=== PATIENT | female | born 1990 | race African-American/Black ===

== ENCOUNTER 2021-04-06 03:37 | Emergency (ER) | payer OTHER, SELFPAY ==
[2021-04-06 04:41] LABS: Urine Blood 2+ (Negative); Urine Glucose Negative (Negative); Urine Protein Negative (Negative); Urine Specific Gravity >=1.030 (1.005-1.030); Urine pH 6.5 (5.0-7.0)
[2021-04-06] MEDS ORDERED: LEVALBUTEROL 1.25 MG/3 ML NEB ONE (04:51)
[2021-04-06] MEDS ORDERED: METHYLPREDNISOLONE 125 MG INJ ONE (04:51)
[2021-04-06 04:57] LABS: Urine Specific Gravity/Preg >1.030 (1.005-1.030)
--- NOTE | 2021-04-06 06:04 | ER ---
Nurse's Notes [facility] Name: David Yusuf Age: 30 yrs Sex: Female : 1990 Arrival Date: 04/06/2021 Time: 03:43 Bed 25 Private MD: Diagnosis: Unspecified asthma with (acute) exacerbation Presentation: 04/06 03:49 Chief complaint: Patient states: SOB X 2 DAYS, CALLED EMS YESTERDAY WAS GIVEN 2 sj1 BREATHING TX'S AT HER HOUSE AT 2131. WOKE UP 0230 WITH CHEST TIGHTNESS. PROD COUGH WITH YELLOW/GREEN PHLEGM, BODY ACHES, DENIES FEVERS. HX OF ASTHMA. C/O 12/30 TORSO PAIN. Coronavirus screen: Vaccine status: Patient reports being unvaccinated. Ebola Screen: Patient negative for fever greater than or equal to 101.5 degrees Fahrenheit, and additional compatible Ebola Virus Disease symptoms Patient denies exposure to infectious person. Patient denies travel to an Ebola-affected area in the 21 days before illness onset. No symptoms or risks identified at this time. Initial Sepsis Screen: Does the patient meet any 2 criteria? No. Patient's initial sepsis screen is negative. Does the patient have a suspected source of infection? No. Patient's initial sepsis screen is negative. Risk Assessment: Do you want to hurt yourself or someone else? Patient reports no desire to harm self or others. Onset of symptoms was April 04, 2021. 03:49 Method Of Arrival: Ambulatory sj1 03:49 Acuity: FLORIDALMA 3 sj1 Triage Assessment: 03:55 General: Appears in no apparent distress. Behavior is calm, cooperative, appropriate sj1 for age. Pain: Complains of pain in chest. EENT: No deficits noted. Neuro: No deficits noted. Cardiovascular: No deficits noted. Cardiovascular: Chest pain quality is TIGHTNESS. Respiratory: Reports shortness of breath at rest on exertion cough that is productive. Respiratory: Onset: The symptoms/episode began/occurred 2 DAYS AGO, the patient has mild shortness of breath. GI: No deficits noted. 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 - Social history:: Smoking status: Patient denies any tobacco usage or history of. Patient uses alcohol, but reports only rare drinking. Patient/guardian denies using street drugs. - Family history:: not pertinent. - Hospitalizations: : No recent hospitalization is reported. Screenin:03 Nutritional screening: No deficits noted. Fall Risk None identified. sj1 04:05 Abuse screen: Denies threats or abuse. Denies injuries from another. Nutritional dc2 screening: No deficits noted. Tuberculosis screening: No symptoms or risk factors identified. Never had TB. Possible symptoms: None. Assessment: 04:03 General: Appears in no apparent distress. Neuro: No deficits noted. Cardiovascular: [facility] Rhythm is Chest pain is described as vague, quality is tightness is located in "the pain hurt all over". Respiratory: Airway is patent Trachea midline Respiratory effort is even, unlabored, Ventilator assessment: GI: No deficits noted. : No deficits noted. EENT: No deficits noted. Derm: No deficits noted. Musculoskeletal: No deficits noted. Vital Signs: 03:49 BP 120 / 92 LA Sitting (auto/reg); Pulse 89; Resp 18 S; Temp 99(O); Pulse Ox 96% on sj1 R/A; Weight 90.72 kg (R); Height 5 ft. 7 in. (170.18 cm); Pain 7/10; 04:00 BP 128 / 91; Pulse 86; Resp 19; Pulse Ox 100% on R/A; Pain 4/10; dc2 05:00 BP 136 / 90; Pulse 82; Resp 18; Pulse Ox 100% on R/A; Pain 5/10; dc2 06:00 BP 115 / 83; Pulse 71; Resp 18; Temp 98.0; Pulse Ox 100% on R/A; Pain 3/10; dc2 03:49 Body Mass Index 31.32 (90.72 kg, 170.18 cm) [facility] ED Course: 03:43 Patient arrived in ED. 03:55 Triage completed. [facility] 03:55 Arm band placed on right wrist. [facility] 04:02 Mynor Pruitt MD is Attending Physician. rn 04:03 Patient has correct armband on for positive identification. Bed in low position. Call 1 light in reach. Side rails up X 1. 04:04 Connie Flores, RN is Primary Nurse. dc2 04:24 SARS-COV-2 RT PCR Sent. dc2 04:30 Initial Neb Treatment Given as ordered. dc2 04:35 X-ray(s) taken. dc2 04:40 Strep Sent. dc2 04:40 Flu Sent. dc2 04:40 XRAY Chest (1 view) Sent. dc2 04:44 XRAY Chest (1 view) In Process Unspecified. EDMS 05:00 Awaiting lab results. dc2 05:00 No apparent distress. Appears to be sleeping. dc2 05:05 Urine --Ancillary (enter results) Sent. dc2 06:11 No provider procedures requiring assistance completed. dc2 06:13 IV discontinued, intact, bleeding controlled, No redness/swelling at site. Pressure dc2 dressing applied. Administered Medications: 04:35 Drug: Xopenex (levalbuterol) (3) 1.25 mg Route: Inhalation; dc2 05:05 Drug: SOLU-Medrol (methylPrednisoLONE) 125 mg Route: IVP; Site: left antecubital; dc2 Outcome: 06:04 Discharge ordered by . rn 06:13 Discharged to home via ambulance, with family. dc2 06:13 Condition: stable 06:13 Discharge instructions given to patient, Instructed on discharge instructions, Demonstrated understanding of instructions, Prescriptions given X 4. 06:14 Patient left the ED. dc2 Signatures: Dispatcher [employer] EDMN Mynor Pruitt MD MD rn Marsh, Wendy Connie Flores RN RN dc2 Rosalia Castaneda RN RN sj1
--- NOTE | 2021-04-06 06:04 | EDPHYS ---
Physician Documentation [facility] Name: David Yusuf Age: 30 yrs Sex: Female : 1990 Arrival Date: 04/06/2021 Time: 03:43 Bed 25 Private MD: ED Physician Mynor Pruitt HPI: 04/06 04:21 This 30 yrs old Black Female presents to ER via Ambulatory with complaints of Breathing rn Difficulty. 04:21 The patient has shortness of breath at rest, with light activity. Onset: The rn symptoms/episode began/occurred 2 day(s) ago. Duration: The symptoms are intermittent. The patient's shortness of breath is aggravated by coughing, light activity, is alleviated by nebulizer treatment. Associated signs and symptoms: Pertinent positives: productive cough, Pertinent negatives: chest pain, hemoptysis, loss of consciousness. Severity of symptoms: At their worst the symptoms were moderate in the emergency department the symptoms are unchanged. The patient has experienced similar episodes in the past. The patient has not recently seen a physician. She reports 2 days of shortness of breath, wheezing, runny nose, cough productive of green sputum. States called 911 yesterday and EMS administered breathing treatments and she felt better. Still feels short of breath now and feels like got a little worse.. 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 - Social history:: Smoking status: Patient denies any tobacco usage or history of. Patient uses alcohol, but reports only rare drinking. Patient/guardian denies using street drugs. - Family history:: not pertinent. - Hospitalizations: : No recent hospitalization is reported. ROS: 04:21 Constitutional: Negative for fever, chills, and weight loss, Eyes: Negative for injury, rn pain, redness, and discharge, ENT: Positive for nasal congestion Neck: Negative for injury, pain, and swelling, Cardiovascular: Negative for chest pain, palpitations, and edema, Respiratory: Negative for pleuritic chest pain Abdomen/GI: Negative for abdominal pain, nausea, vomiting, diarrhea, and constipation, Back: Negative for injury and pain, : Negative for injury, bleeding, discharge, and swelling, MS/Extremity: Negative for injury and deformity, Skin: Negative for injury, rash, and discoloration, Neuro: Negative for headache, weakness, numbness, tingling, and seizure. Exam: 04:21 Constitutional: This is a well developed, well nourished patient who is awake, alert, rn audible wheezing noted Head/Face: Normocephalic, atraumatic. Eyes: Pupils equal round and reactive to light, extra-ocular motions intact. Lids and lashes normal. Conjunctiva and sclera are non-icteric and not injected. Cornea within normal limits. Periorbital areas with no swelling, redness, or edema. ENT: No stridor Cardiovascular: Regular rate and rhythm. No pulse deficits. Respiratory: Audible wheezing, mild tachypnea. No retractions Skin: Warm, dry with normal turgor. Normal color with no rashes, no lesions, and no evidence of cellulitis. MS/ Extremity: Pulses equal, no cyanosis. Neurovascular intact. Full, normal range of motion. Equal circumference. Neuro: Awake and alert, GCS 15 Vital Signs: 03:49 BP 120 / 92 LA Sitting (auto/reg); Pulse 89; Resp 18 S; Temp 99(O); Pulse Ox 96% on sj1 R/A; Weight 90.72 kg (R); Height 5 ft. 7 in. (170.18 cm); Pain 7/10; 04:00 BP 128 / 91; Pulse 86; Resp 19; Pulse Ox 100% on R/A; Pain 4/10; dc2 05:00 BP 136 / 90; Pulse 82; Resp 18; Pulse Ox 100% on R/A; Pain 5/10; dc2 06:00 BP 115 / 83; Pulse 71; Resp 18; Temp 98.0; Pulse Ox 100% on R/A; Pain 3/10; dc2 03:49 Body Mass Index 31.32 (90.72 kg, 170.18 cm) sj MDM: 04:02 Patient medically screened. rn 06:00 Differential diagnosis: asthma, Bronchitis pneumonia, Pneumothorax reactive airway rn disease. Data reviewed: vital signs, nurses notes, lab test result(s), radiologic studies, plain films, and as a result, I will discharge patient. Data interpreted: monitoring manager: rate is 82 beats/min, rhythm is normal sinus rhythm, regular, with no ectopy, Interpretation: normal rate, normal rhythm, Pulse oximetry: on room air is 100 %. Interpretation: normal. Test interpretation: by ED physician or midlevel provider: plain radiologic studies, Chest x-ray negative for pneumonia or pneumothorax. Counseling: I had a detailed discussion with the patient and/or guardian regarding: the historical points, exam findings, and any diagnostic results supporting the discharge/admit diagnosis, lab results, radiology results, the need for outpatient follow up, to return to the emergency department if symptoms worsen or persist or if there are any questions or concerns that arise at home. Response to treatment: the patient's symptoms have markedly improved after treatment, and as a result, I will discharge patient. Special discussion: I discussed with the patient/guardian in detail that at this point there is no indication for admission to the hospital. It is understood, however, that if the symptoms persist or worsen the patient needs to return immediately for re-evaluation. 06:00 ED course: Patient sleeping comfortably, no oxygen requirement, breathing much better. 04/06 04:12 Order name: Flu; Complete Time: 06:00 04/06 04:12 Order name: Strep; Complete Time: 06:00 04/06 04:23 Order name: SARS-COV-2 RT PCR; Complete Time: 05:26 EDMS 04/06 04:40 Order name: Urine Dipstick-Ancillary; Complete Time: 04:58 EDMS 04/06 04:40 Order name: Urine --Ancillary (enter results) tt3 04/06 04:12 Order name: XRAY Chest (1 view) rn 04/06 04:12 Order name: IV Start; Complete Time: 05:05 04/06 04:40 Order name: Urine --Ancillary; Complete Time: 04:58 EDMS 04/06 05:56 Order name: Throat Culture EDMS Administered Medications: 04:35 Drug: Xopenex (levalbuterol) (3) 1.25 mg Route: Inhalation; dc2 05:05 Drug: SOLU-Medrol (methylPrednisoLONE) 125 mg Route: IVP; Site: left antecubital; dc2 Disposition Summary: 04/06/21 06:04 Discharge Ordered Location: Home rn Problem: an acute exacerbation rn Symptoms: have improved rn Condition: Stable rn Diagnosis - Unspecified asthma with (acute) exacerbation rn Followup: rn - With: Private Physician - When: As needed - Reason: Recheck today's complaints, Re-evaluation by your physician Discharge Instructions: - Discharge Summary Sheet rn - Asthma, Adult rn Forms: - Medication Reconciliation Form rn - Thank You Letter rn - Antibiotic international sales manager - Prescription Opioid Use rn Prescriptions: - albuterol sulfate 90 mcg/actuation Inhalation HFA aerosol inhaler - inhale 2 puff by INHALATION route every 4-6 hours; 1 Pump; Refills: 0, Product rn Selection Permitted - Prednisone 20 mg Oral Tablet - take 3 tablets by ORAL route once daily for 5 days; 15 tablet; Refills: 0, rn Product Selection Permitted - Albuterol Sulfate 2.5 mg /3 mL (0.083 %) Inhalation Solution for Nebulization - inhale 1 unit by NEBULIZATION route every 8 hours As needed; 1 box; Refills: 0, rn Product Selection Permitted - Zithromax Z-Michele 250 mg Oral Tablet - take 1 tablet by ORAL route as directed for 5 days Day 1 - take two (2) tablets rn one time. Day 2, 3, 4 , 5 take one (1) tablet once daily.; 6 tablet; Refills: 0, Product Selection Permitted Signatures: Dispatcher [employer] [facility] Mynor Pruitt MD MD rn Charters, Denise RN RN dc2 Rosalia Castaneda RN RN sj1 Corrections: (The following items were deleted from the chart) 04:23 04:12 CORONAVIRUS+MR.LAB.BRZ ordered. [facility] 06:04 06:00 ED course: Patient sleeping comfortably, no oxygen requirement. rn rn
[2021-04-06 06:40] VITALS: O2SAT 100
[2021-04-06 06:43] VITALS: BP 115/83; TEMP 98
--- NOTE | 2021-04-06 08:48 | RAD REPORT ---
EXAM DESCRIPTION: Angélica Single View04/06/2021 4:44 am CLINICAL HISTORY: Cough COMPARISON: none FINDINGS: The lungs appear clear of acute infiltrate. The heart is normal size IMPRESSION: No acute abnormalities displayed
== END 2021-04-06 06:14 | disposition home or self-care (01) ==
LOC: ER 03:37
DX: J45.901 Unspecified asthma with (acute) exacerbation (principal)
CPT/HCPCS: 71045; 81003; 81025; 87070; 87081; 87804; 96374; 99284; J2930; U0003

== ENCOUNTER 2022-01-12 07:43 | Emergency (ER) | payer SELFPAY ==
--- OUTSIDE RECORDS SUMMARY | 2022-01-12 07:46 | XMS REPORT | Continuity of Care Document ---
:1990 Author Organization [facility] t Address [address] [place] [address] Care Team Providers Name Role Phone GREGORY Attending Clinician Unavailable UMAIR Attending Clinician Unavailable Jessica STERN-Jairo Attending Clinician ANIYA Attending Clinician Unavailable GREGORY Admitting Clinician Unavailable Payers Payer Name Policy Type Policy Number Effective Date Expiration Date [place] [address] [id number] 2019 00:00:00 [employer] Problems This patient has no known problems. Allergies, Adverse Reactions, Alerts This patient has no known allergies or adverse reactions. Medications This patient has no known medications. Procedures This patient has no known procedures. Encounters Start End Encounter Admission Attending Care Care Encounter Source Date/Time Date/Time Type Type Clinicians Facility Department ID 2021-07-13 Outpatient [facility] [id number] [facility] - 10:05:06 [id number] [facility] 2021-08-20 2021-08-20 Outpatient LA JENKINS [id number] [facility] - 00:00:00 00:00:00 [facility] 2021-08-03 2021-08-03 Outpatient LA BLOCK Sebastian [id number] [facility] - 00:00:00 00:00:00 [facility]EN[facility] 2021-07-19 2021-07-19 Outpatient Sebastian Sebastian [id number] [facility] - 00:00:00 00:00:00 [facility] 2021-04-30 2021-04-30 Outpatient LA JENKINS Sebastian [id number] [facility] - 00:00:00 00:00:00 [facility] 2021-03-19 2021-03-19 Outpatient GREGORY Sebastian Sebastian [id number] [facility] - 00:00:00 00:00:00 [facility] 2021-01-15 2021-01-15 Outpatient GREGORY LA Sebastian [id number] [facility] - 00:00:00 00:00:00 [facility] 2020-11-09 2020-11-09 Office YOLANDE Lopez [id number] 14:16:58 14:31:58 Visit [facility] [id number] 2020-11-09 2020-11-09 Outpatient ANIYA LA [facility] [id number] [facility] - 12:16:58 12:16:58 [facility] 2020-10-03 2020-10-03 Outpatient [facility] [id number] [facility] - 00:00:00 00:00:00 [facility] 2018-06-15 2018-06-15 Emergency [facility] [id number] [place] 04:06:52 04:06:52 Health 2018-06-15 2018-06-15 Emergency [facility] [id number] [place] 02:44:00 02:44:00 Health Results This patient has no known results.
--- NOTE | 2022-01-12 09:37 | RAD REPORT ---
EXAM DESCRIPTION: RAD - Chest Single View - 01/12/2022 9:04 am CLINICAL HISTORY: SOB COMPARISON: Chest Single View dated 04/06/2021 FINDINGS: Lines: None. Lungs: No evidence of edema or pneumonia. Pleural: No significant pleural effusions or pneumothorax. Cardiac: The heart size is within normal limits. Bones: No acute fractures. Other: IMPRESSION: No acute cardiopulmonary disease.
--- NOTE | 2022-01-12 09:53 | EDPHYS ---
Physician Documentation [facility] Name: David Yusuf Age: 31 yrs Sex: Female : 1990 Arrival Date: 01/12/2022 Time: 07:48 Bed 6 Private MD: ED Physician [place] HPI: 01/12 09:56 This 31 yrs old Black Female presents to ER via EMS with complaints of Asthma sd2 Exacerbation. 07:53 31 yo F with a hx of asthma presents via EMS with CC of SOB that woke her up out of her sd2 sleep this morning. She reports gradually worsening SOB over the past few days due to a cold that she finally felt better from yesterday. She reports productive cough of green and yellow sputum but denies associated fever, CP or vomiting. Denies any chance of . Lost her inhaler and has not been able to use at home. States this is consistent with prior asthma exacerbations in the past. Reports sick contacts with children she has been around.. 07:53 EMS did give the patient one duoneb treatment and 125 mg Solumedrol prior to arrival. sd2 Pt feeling much improved at time of arrival.. 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 - Social history:: Smoking status: Patient denies any tobacco usage or history of. ROS: 07:53 Constitutional: Negative for fever, chills, and weight loss, Cardiovascular: Negative sd2 for chest pain, palpitations, and edema, Respiratory: Positive for shortness of breath, productive cough and wheezing. Abdomen/GI: Negative for abdominal pain, nausea, vomiting, diarrhea. Skin: Negative for injury, rash, and discoloration, Neuro: Negative for headache, numbness and tingling. Hematologic/Lymphatic: Negative for swollen nodes, abnormal bleeding, and unusual bruising. Exam: 07:53 Constitutional: This is a well developed, well nourished patient who is awake, alert, sd2 and in no acute distress. Head/Face: Normocephalic, atraumatic. Eyes: EOMI, normal conjunctiva bilaterally Chest/axilla: Normal chest wall appearance and motion. Nontender with no deformity. Cardiovascular: Regular rate and rhythm with a normal S1 and S2. No gallops, murmurs, or rubs. 2+ distal pulses. Respiratory: Lungs have equal breath sounds bilaterally, clear to auscultation and percussion. No rales, rhonchi or wheezes noted. No increased work of breathing, no retractions or nasal flaring. Abdomen/GI: Soft, non-tender, with normal bowel sounds. No guarding or rebound. No evidence of tenderness throughout. Skin: Warm, dry with normal turgor. Normal color with no rashes, no lesions, and no evidence of cellulitis. Psych: Awake, alert, with orientation to person, place and time. Behavior, mood, and affect are within normal limits. 08:20 ECG was reviewed by the Attending Physician. NSR, rate 68, no STEMI criteria, normal sd2 EKG Vital Signs: 07:53 BP 122 / 81; Pulse 87; Resp 23; Temp 98(TE); Pulse Ox 100% on R/A; Weight 95.25 kg (R); jd3 Height 5 ft. 8 in. (172.72 cm) (R); Pain 4/10; 09:02 BP 125 / 79; Pulse 85; Resp 21; Pulse Ox 100% on R/A; jd3 10:08 Pulse 83; Resp 18; Pulse Ox 100% on R/A; jd3 07:53 Body Mass Index 31.93 (95.25 kg, 172.72 cm) jd3 MDM: 07:52 Patient medically screened. sd2 07:53 Differential Diagnosis asthma exacerbation, bronchitis, COPD, viral URI, PNA, COVID, sd2 flu, among others. 08:20 Test interpretation: by ED physician or midlevel provider: ECG. sd2 09:49 Data reviewed: vital signs, nurses notes, EKG, radiologic studies, plain films. sd2 Counseling: I had a detailed discussion with the patient and/or guardian regarding: the historical points, exam findings, and any diagnostic results supporting the discharge/admit diagnosis, radiology results. Medical screen evaluation completed. EMTALA emergency medical condition absent. Response to treatment: the patient's symptoms have markedly improved after treatment, the patient's condition has returned to base line, the patient is now symptom free. 01/12 07:52 Order name: XRAY CXR (1 view); Complete Time: 09:47 sd2 01/12 07:58 Order name: EKG; Complete Time: 07:59 sd2 01/12 07:58 Order name: Cardiac monitoring; Complete Time: 07:59 sd2 01/12 07:58 Order name: EKG - Nurse/Tech; Complete Time: 08:18 sd2 01/12 07:58 Order name: O2 Sat Monitoring; Complete Time: 07:59 sd2 Administered Medications: 07:56 Not Given (Physician Discretion): predniSONE 60 mg PO once jd3 Disposition Summary: 01/12/22 09:52 Discharge Ordered Location: Home sd2 Problem: an acute exacerbation sd2 Symptoms: have improved sd2 Condition: Stable sd2 Diagnosis - Unspecified asthma with (acute) exacerbation sd2 Followup: sd2 - With: Private Physician - When: - Reason: Recheck today's complaints, Continuance of care, Re-evaluation by your physician Followup: sd2 - With: Emergency Department - When: As needed - Reason: Discharge Instructions: - Discharge Summary Sheet cp - Asthma, Adult sd2 - Asthma Attack sd2 Forms: - Medication Reconciliation Form sd2 - Thank You Letter sd2 - Antibiotic Education sd2 - Prescription Opioid Use sd2 Prescriptions: - albuterol sulfate 90 mcg/actuation Inhalation HFA aerosol inhaler - inhale 1 puff by INHALATION route every 4-6 hours; 1 Inhaler; Refills: 0, cp Product Selection Permitted - Zithromax Z-Michele 250 mg Oral Tablet - take 1 tablet by ORAL route as directed for 5 days Day 1 - take two (2) tablets sd2 one time. Day 2, 3, 4 , 5 take one (1) tablet once daily.; 6 tablet; Refills: 0, Product Selection Permitted - Prednisone 20 mg Oral Tablet - take 2 tablets by ORAL route once daily for 5 days; 10 tablet; Refills: 0, sd2 Product Selection Permitted Signatures: Dispatcher Chucky Milner RN RN jd3 [place] sd2 Corrections: (The following items were deleted from the chart) 07:59 07:58 IV Saline Lock ordered. sd2 sd2 08:00 07:58 Labs collected and sent ordered. sd2 sd2
--- NOTE | 2022-01-12 09:53 | ER ---
Nurse's Notes [facility] Name: David Yusuf Age: 31 yrs Sex: Female : 1990 Arrival Date: 01/12/2022 Time: 07:48 Bed 6 Private MD: Diagnosis: Unspecified asthma with (acute) exacerbation Presentation: 01/12 07:48 Chief complaint: EMS states: "pt reporting shortness of breath for 3 days. reports jd3 having a history of asthma and has not had her albuterol inhalers. we started a 20 G IV to her right AC. we gave 2 breathing DuoNeb treatments and 125 of Solu Medrol. she remained at 97-98 % on room air.". Coronavirus screen: At this time, the client does not indicate any symptoms associated with coronavirus-19. Ebola Screen: No symptoms or risks identified at this time. Initial Sepsis Screen: Does the patient meet any 2 criteria? No. Patient's initial sepsis screen is negative. Does the patient have a suspected source of infection? No. Patient's initial sepsis screen is negative. Risk Assessment: Do you want to hurt yourself or someone else? Patient reports no desire to harm self or others. Onset of symptoms was January 09, 2022. 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 - Social history:: Smoking status: Patient denies any tobacco usage or history of. Screenin:17 Abuse screen: Denies threats or abuse. Nutritional screening: No deficits noted. jd3 Tuberculosis screening: No symptoms or risk factors identified. Fall Risk IV access (20 points). Ambulatory Aid- None/Bed Rest/Nurse Assist (0 pts). Gait- Normal/Bed Rest/Wheelchair (0 pts) Mental Status- Oriented to own ability (0 pts). Total Morales Fall Scale indicates No Risk (0-24 pts). Assessment: 08:16 General: Appears in no apparent distress. comfortable, Behavior is calm, cooperative, jd3 appropriate for age. Pain: Complains of pain in left lateral anterior chest Quality of pain is described as aching. Neuro: Daniel Agitation-Sedation Scale (RASS): 0 - Alert and Calm Level of Consciousness is awake, alert, obeys commands, Oriented to person, place, time, situation. Cardiovascular: Heart tones present Capillary refill < 3 seconds Patient's skin is warm and dry. Rhythm is regular. Respiratory: Reports shortness of breath Airway is patent Respiratory effort is even, unlabored, Respiratory pattern is regular, symmetrical, Breath sounds with wheezes bilaterally. the patient has mild shortness of breath. GI: No signs and/or symptoms were reported involving the gastrointestinal system. : No signs and/or symptoms were reported regarding the genitourinary system. EENT: No signs and/or symptoms were reported regarding the EENT system. Derm: Skin is intact, Skin is dry, Skin is normal, Skin temperature is warm. Musculoskeletal: Circulation, motion, and sensation intact. Range of motion: intact in all extremities. 09:02 Reassessment: Patient appears in no apparent distress at this time. No changes from jd3 previously documented assessment. Patient and/or family updated on plan of care and expected duration. Pain level reassessed. Patient is alert, oriented x 3, equal unlabored respirations, skin warm/dry/pink. 10:07 Reassessment: Patient appears in no apparent distress at this time. Patient and/or jd3 family updated on plan of care and expected duration. Pain level reassessed. Patient is alert, oriented x 3, equal unlabored respirations, skin warm/dry/pink. Patient states feeling better. Vital Signs: 07:53 BP 122 / 81; Pulse 87; Resp 23; Temp 98(TE); Pulse Ox 100% on R/A; Weight 95.25 kg (R); jd3 Height 5 ft. 8 in. (172.72 cm) (R); Pain 4/10; 09:02 BP 125 / 79; Pulse 85; Resp 21; Pulse Ox 100% on R/A; jd3 10:08 Pulse 83; Resp 18; Pulse Ox 100% on R/A; jd3 07:53 Body Mass Index 31.93 (95.25 kg, 172.72 cm) jd3 ED Course: 07:48 Patient arrived in ED. jd3 07:48 Chucky Huang RN is Primary Nurse. jd3 07:51 [place]la Park is Attending Physician. sd2 07:52 Triage completed. jd3 07:53 Arm band placed on. jd3 08:00 Maintain EMS IV. Dressing intact. Good blood return noted. Site clean \\T\\ dry. Gauge \\T\\ mauro 3 site: 20 G right AC. 08:17 Patient has correct armband on for positive identification. Bed in low position. Call j light in reach. Side rails up X2. Client placed on continuous cardiac and pulse oximetry monitoring. NIBP monitoring applied. monitoring and evaluation advisor on. Pulse ox on. NIBP on. 09:06 XRAY CXR (1 view) In Process Unspecified. EDMS 10:07 No provider procedures requiring assistance completed. IV discontinued, intact, jd3 bleeding controlled, No redness/swelling at site. Pressure dressing applied. Administered Medications: 07:56 Not Given (Physician Discretion): predniSONE 60 mg PO once jd3 Medication: 08:17 VIS not applicable for this client. jd3 Outcome: 09:52 Discharge ordered by . sd2 10:07 Discharged to home ambulatory, with family. jd3 10:07 Condition: stable 10:07 Discharge instructions given to patient, Instructed on discharge instructions, follow up and referral plans. medication usage, Demonstrated understanding of instructions, follow-up care, medications, Prescriptions given X 3. 10:08 Patient left the ED. jd3 Signatures: Dispatcher [employer] EDNM Chucky Huang RN RN jd3 Dunlop, Stephanie sd2
[2022-01-12 10:28] VITALS: TEMP 98; O2SAT 100
[2022-01-12 10:33] VITALS: BP 125/79
--- NOTE | 2022-01-13 06:23 | EKG ---
Test Date: 2022-01-12 Test Time: 08:14:30 Peg Driver: JOHANA MEASUREMENT RESULTS: Intervals: Rate: 68 MN: 166 QRSD: 80 QT: 398 QTc: 423 [place]: P: 53 MN: 166 QRS: 72 T: 59 INTERPRETIVE STATEMENTS: Normal sinus rhythm Normal ECG Compared to ECG 08/13/2010 12:09:57 Sinus arrhythmia no longer present Electronically Signed On 01-13-22 06:21:55 CDT by Carlos Eduardo Mcclure
== END 2022-01-12 10:08 | disposition home or self-care (01) ==
LOC: ER 07:43
DX: J45.901 Unspecified asthma with (acute) exacerbation (principal)
CPT/HCPCS: 71045; 93005; 99284